=== PATIENT | male | born 1950 | race Hispanic/Latino ===

== ENCOUNTER 2018-03-07 15:40 | Emergency (ER) | payer MEDICARE ==
[2018-03-07 17:15] VITALS: BP 133/94; PULSE 73; RESP 18; TEMP 98.1; O2SAT 98
--- NOTE | 2018-03-07 17:25 | C.PDOC ---
History Of Present Illness 67yo male, presents to ER for evaluation of left lateral ankle pain after he missed a step while getting off a ladder. He denies any head injury, weakness, numbness, and offers no other medical complaints. Time Seen by Provider: 03/07/18 17:22 Chief Complaint (Nursing): Lower Extremity Problem/Injury History Per: Patient History/Exam Limitations: no limitations Onset/Duration Of Symptoms: Days Current Symptoms Are (Timing): Still Present Additional History Per: Patient Past Medical History Reviewed: Historical Data, Nursing Documentation, Vital Signs Vital Signs: Last Vital Signs Temp 98.1 F 03/07/18 17:11 Pulse 73 03/07/18 17:11 Resp 18 03/07/18 17:11 BP 133/94 H 03/07/18 17:11 Pulse Ox 98 03/07/18 18:49 - Medical History PMH: HTN Denies: Chronic Kidney Disease Surgical History: No Surg Hx Family History: States: No Known Family Hx - Social History Hx Alcohol Use: Yes Hx Substance Use: No - Immunization History Hx Tetanus Toxoid Vaccination: No Hx Influenza Vaccination: No Hx Pneumococcal Vaccination: No Review Of Systems Except As Marked, All Systems Reviewed And Found Negative. Constitutional: Negative for: Fever, Chills Musculoskeletal: Positive for: Foot Pain (left ankle pain) Neurological: Negative for: Weakness, Numbness Physical Exam - Physical Exam Appears: Non-toxic, No Acute Distress Skin: Normal Color, Warm, Dry Head: Atraumatic, Normacephalic Eye(s): bilateral: Normal Inspection, PERRL, EOMI Neck: Normal ROM, Supple Chest: Symmetrical Cardiovascular: Rhythm Regular Respiratory: Normal Breath Sounds Extremity: Normal ROM, Calf Tenderness (< 2 seconds), No Deformity, Swelling ( mild swelling to lateral ankle), Other (ecchymosis to dorsum of left foot) Neurological/Psych: Oriented x3 ED Course And Treatment O2 Sat by Pulse Oximetry: 98 (RA) Pulse Ox Interpretation: Normal - Other Rad L ankle X-Ray: Interpreted by Me (no lateral or foot fx) Medical Decision Making Medical Decision Making: ankle sprain, no fx Disposition Doctor Will See Patient In The: Office Counseled Patient/Family Regarding: Studies Performed, Diagnosis - Disposition Referrals: Fouzia Galvin MD [Staff Provider] - Chivo Sevilla MD [Staff Provider] - Disposition: HOME/ ROUTINE Disposition Time: 18:11 Condition: GOOD Additional Instructions: continue ice packs to the ankle with motrin 400-600 mg every 6 hours as needed x-ray today NO fracture. NO HOT SOAKS- MAKE IT MORE SWOLLEN!! Follow-up w Dr. Galvin- Orthopedics- as needed Instructions: Ankle Sprain Forms: [employer] ([place]) - Clinical Impression Clinical Impression: Ankle pain, left - Scribe Statement The provider has reviewed the documentation as recorded by the Scribe (Daisy Olivares) Provider Attestation: All medical record entries made by the Scribe were at my direction and personally dictated by me. I have reviewed the chart and agree that the record accurately reflects my personal performance of the history, physical exam, medical decision making, and the department course for this patient. I have also personally directed, reviewed, and agree with the discharge instructions and disposition.
--- NOTE | 2018-03-07 18:22 | RAD ---
PROCEDURE: Left Ankle Radiographs. HISTORY: L ankle sprain 3 days ago COMPARISON: None FINDINGS: BONES: No acute fracture. 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 JOINTS: Normal. No osteoarthritis. Ankle mortise maintained. Talar dome intact SOFT TISSUES: Lateral soft tissue swelling without distal fibular abnormality. OTHER FINDINGS: None. IMPRESSION: Soft tissue swelling without acute articular or osseous abnormality.
== END 2018-03-07 18:23 | disposition home or self-care (01) ==
LOC: C.ER 15:40
DX: M25.572 Pain in left ankle and joints of left foot (principal)